=== PATIENT | male | born 1965 | race Caucasian/White ===

== ENCOUNTER 2017-10-29 09:37 | Day surgery (SDC) | payer OTHER ==
[~2017-10-29] VITALS: Ht 182.9 cm; Wt 132.0 kg
[~2017-10-29 09:37] MED LIST: ASPIRIN81 M2 PO; LISINOPRIL5 MG PO; METOPROLOL TART25 MG PO; SIMVASTATIN20 MG PO; TYLENOL ARTHRI650 MG PO
== END 2017-10-29 16:45 | disposition home or self-care (01) ==
LOC: CATH 09:37
DX: I25.10 Atherosclerotic heart disease of native coronary artery without angina pectoris (principal); I25.5 Ischemic cardiomyopathy; I42.0 Dilated cardiomyopathy; I50.22 Chronic systolic (congestive) heart failure; I49.3 Ventricular premature depolarization; E66.01 Morbid (severe) obesity due to excess calories; Z68.41 Body mass index [BMI] 40.0-44.9, adult; Z79.82 Long term (current) use of aspirin; F17.220 Nicotine dependence, chewing tobacco, uncomplicated
CPT/HCPCS: C1769; C1887; J1644; J2250; J3010; J7040